=== PATIENT | male | born 1980 | race Caucasian/White ===

== ENCOUNTER 2024-02-17 12:51 | Emergency (ER) | payer MEDICAID ==
[~2024-02-17] VITALS: Ht 180.3 cm; Wt 68.0 kg
[2024-02-17] MEDS ORDERED: NALO4SPR BNOSTRILS (13:27)
[2024-02-17 14:00] VITALS: TEMP 98.3
[2024-02-17 14:22] VITALS: BP 112/74; O2SAT 98
== END 2024-02-17 14:20 | disposition home or self-care (01) ==
LOC: ER 12:55
DX: T40.411A Poisoning by fentanyl or fentanyl analogs, accidental (unintentional), initial encounter (principal); F17.200 Nicotine dependence, unspecified, uncomplicated; Y92.89 Other specified places as the place of occurrence of the external cause